=== PATIENT | male | born 1980 | race Caucasian/White ===

== ENCOUNTER → 2018-10-19 | Outpatient (CLI) | payer OTHER ==
--- NOTE | 2018-10-19 16:15 | PCVCIMAG ---
APPROVED REPORT Study performed: 10/19/2018 13:02:34 EXAM: Comprehensive 2D, Doppler, and color-flow Echocardiogram Patient Location: Echo lab Room #: 2Status: routine BSA: 2.25 HR: 64 bpmBP: 132/84 mmHg Rhythm: NSR Other Information Study Quality: Good Risk Factors: Cardiac Risk Factors: HTN Indications Abnormal ECG Dyspnea Hypertension/HDD Family history of early CAD 2D Dimensions IVSd: 8.38 (7-11mm)LVOT Diam: 22.36 (18-24mm) LVDd: 51.55 mm PWd: 7.36 (7-11mm)Ascending Ao: 35.78 (22-36mm) LVDs: 32.87 (25-40mm) Left Atrium: 39.10 (27-40mm) Aortic Root: 23.52 mm LV Single Plane 4CH: 58.61 % LV Single Plane 2CH: 61.84 % Biplane EF: 59.8 % Volumes Left Atrial Volume (Systole) Single Plane 4CH: 48.42 mLSingle Plane 2CH: 61.27 mL Biplane LA Volume: 58.00 mLLA ESV Index: 26.00 mL/m2 Aortic Valve AoV Peak Ariel.: 1.48 m/s AO Peak Gr.: 9.10 mmHgLVOT Max P.62 mmHg LVOT Max V: 0.63 m/s JERMAINE Vmax: 1.66 cm2 AI Vmax: 4.13 m/s AI [place]: 3.01 m/s2 AI PHT: 406.63 ms Mitral Valve E/A Ratio: 1.5 MV Decel. Time: 160.21 ms MV E Max Ariel.: 0.63 m/s MV A Ariel.: 0.41 m/s IVRT: 84.20 ms TDI E/Lateral E': 6.30E/Medial E': 7.00 Medial E' Ariel.: 0.09 m/s Lateral E' Ariel.: 0.10 m/s Pulmonary Valve PV Peak Ariel.: 0.77 m/sPV Peak Gr.: 2.40 mmHg Pulmonary Vein P Vein S: 0.54 m/sP Vein A: 0.27 m/s P Vein D: 0.49 m/sP Vein A Dur.: 103.8 msec P Vein S/D Ratio: 1.10 Tricuspid Valve TR Peak Ariel.: 1.79 m/s TR Peak Gr.: 12.87 mmHg TV Vmax: 0.53 m/sPA Pressure: 20.00 mmHg Left Ventricle The left ventricle is normal size. There is normal LV segmental wall motion. There is normal left ventricular wall thickness. Left ventricular systolic function is normal. The left ventricular ejection fraction is within the normal range. LVEF is 60%. The left ventricular diastolic function is normal. Right Ventricle The right ventricle is normal size. The right ventricular systolic function is normal. Atria The left atrium size is normal. Right atrium is mildly dilated. Aortic Valve Aortic valve is bicuspid. Mild aortic valve sclerosis. Moderate aortic regurgitation. There is no aortic valvular stenosis. Mitral Valve The mitral valve is normal in structure. Trace mitral regurgitation. No evidence of mitral valve stenosis. Tricuspid Valve The tricuspid valve is normal in structure. Trace tricuspid regurgitation with a PA pressure of 20 mmHg. No apparent pulmonary hypertension. Pulmonic Valve The pulmonary valve is normal in structure. There is no pulmonic valvular regurgitation. Great Vessels The aortic root is normal in size. The ascending aorta is normal in size. Aortic arch is normal in caliber. IVC is normal in size and collapses >50% with inspiration. Pericardium There is no pericardial effusion. There is no pleural effusion. <Conclusion> The left ventricle is normal size. LVEF is 60%. The left ventricular diastolic function is normal. The right ventricle is normal size. The left atrium size is normal. Right atrium is mildly dilated. Aortic valve is bicuspid. Mild aortic valve sclerosis. Moderate aortic regurgitation. There is no aortic valvular stenosis. Trace mitral regurgitation. Trace tricuspid regurgitation with a PA pressure of 20 mmHg. No apparent pulmonary hypertension. The aortic root is normal in size. There is no pericardial effusion.
--- NOTE | 2018-10-19 16:27 | PCVCIMAG ---
APPROVED REPORT Patient Location: Echo lab-[facility] Room #: 2 Stress Nurse: Sheila Ma RN INDICATIONS: Abnormal EKG, Dyspnea on exertion,elevated blood pressure, Family history of early onset CAD The patient exercised according to the UZAIR protocol for 12:00 mins; achieving a work level of 13.7 METS. The resting heart rate of 83 bpm hallie to a maximum heart rate of 187 bpm. This value represents 103% of the maximal, age-predicted heart rate. The resting blood pressure of 132/84 mmHg, hallie to a maximum blood pressure of 200/80 mmHg. The exercise test was stopped due to leg fatigue,dyspnea. Occasional PVCs were seen at rest and in recovery. These completely stopped during stages with higher heart rates. Conclusion #1 patient's subsegment his fatigue and shortness of breath no reproduction of chest pain or angina #2 no diagnostic EKG changes consistent with ischemia no significant ectopy occasional PVCs pre-and post exercise unifocal #3 excellent exercise tolerance with an appropriate hemodynamic response. Present negative treadmill stress test for ischemia or significant ectopy.
== END | disposition home or self-care (01) ==
LOC: PCVCIMAG 14:07
PROVIDERS: ATTEND Internal Medicine Cardiovascular Disease
DX: I35.2 Nonrheumatic aortic (valve) stenosis with insufficiency (principal); R94.31 Abnormal electrocardiogram [ECG] [EKG]; R06.09 Other forms of dyspnea; G47.30 Sleep apnea, unspecified; I15.9 Secondary hypertension, unspecified; I10 Essential (primary) hypertension; Z82.49 Family history of ischemic heart disease and other diseases of the circulatory system
CPT/HCPCS: 93017; 93306